=== PATIENT | female | born 1995 | race Caucasian/White ===

== ENCOUNTER 2019-03-20 10:11 | Inpatient (IN) | payer OTHER ==
[~2019-03-20] VITALS: Ht 157.5 cm; Wt 80.3 kg
[2019-03-20 10:15] VITALS: BP 135/80
--- NOTE | 2019-03-20 10:21 | NUR ---
PATIENT AMBULATED TO ER BED 11. RN EVALUATING AT BEDSIDE.
--- NOTE | 2019-03-20 10:31 | NUR ---
c/o sudden onset of ruq with nausea and 2 episodes of emesis x yesterday denies recent injury/trauma--denies dysuria
[2019-03-20 10:51] LABS: APPEARANCE,URINE CLEAR (CLEAR); BILIRUBIN,URINE NEGATIVE (NEGATIVE); BLOOD, URINE NEGATIVE (NEGATIVE); COLOR,URINE YELLOW (YELLOW); LEUKOCYTE ESTERASE ,URINE NEGATIVE (NEGATIVE); NITRITE, URINE NEGATIVE (NEGATIVE); UGLUCOSE NEGATIVE (NEGATIVE)
--- NOTE | 2019-03-20 11:08 | NUR ---
labs drawn at iv start and handed to pt
[2019-03-20 11:10] LABS: BASOPHILS % (AUTO) 0.4 % (0.0-2.0); EOSINOPHILS # (AUTO) 0.2 K/uL (0-0.4); EOSINOPHILS % (AUTO) 3.5 % (0.0-4.0); HEMATOCRIT 41.3 % (36-48); LYMPHOCYTES # (AUTO) 1.9 K/uL (2.5-16.5); LYMPHOCYTES % (AUTO) 28.8 % (20.5-51.1); MEAN CORPUSCULAR HEMOGLOBIN 29 pg (27-31); MEAN CORPUSCULAR HGB CONC 34 g/dL (33-37); MEAN CORPUSCULAR VOLUME 84.3 fL (80-94); MONOCYTES # (AUTO) 0.5 K/uL (0.8-1.0); MONOCYTES % (AUTO) 7.8 % (1.7-9.3); NEUTROPHILS # (AUTO) 3.8 K/uL (1.8-7.7); NEUTROPHILS % (AUTO) 59.5 % (42.2-75.2); PLATELET COUNT (AUTO) 189 K/uL (140-450); RED CELL DISTRIBUTION WIDTH 13.6 % (11.6-13.7); WHITE BLOOD COUNT (AUTO) 6.5 K/uL (4.8-10.8)
[2019-03-20 11:22] LABS: ANION GAP 11.1 (8-16); CREATININE 0.7 mg/dL (0.6-1.3); POTASSIUM 4.1 mmol/L (3.5-5.1)
[2019-03-20 11:28] LABS: ALBUMIN 3.6 g/dL (3.4-5.0); TOTAL BILIRUBIN 0.4 mg/dL (0.0-1.0)
--- NOTE | 2019-03-20 11:41 | NUR ---
pt to radiology via [facility]
--- NOTE | 2019-03-20 12:58 | NUR ---
PT ON HER CELL PHONE---DENIES PAIN THIS TIME CONTINUES TO WAIT FOR DISPO---PENDING ALL RESULTS
--- NOTE | 2019-03-20 13:34 | NUR ---
US exam completed at bedside by tech.
[2019-03-20] MEDS ORDERED: ONDANSETRON 4 MG/2 ML VIAL IVP PRN (17:15)
[2019-03-20] MEDS ORDERED: ACETAMINOPHEN 325 MG TAB PO PRN (17:15)
[2019-03-20] MEDS ORDERED: HYDROcodone/APAP 7.5/325 MG 1 TAB PO PRN (17:15)
[2019-03-20] MEDS ORDERED: PRON INH (17:23)
[2019-03-20] MEDS ORDERED: ALBUTEROL SULFATE/IPRATROPIU 3 ML SOL IH PRN (17:40)
[2019-03-20] MEDS ORDERED: MORPHINE SULFATE 2 MG/ML SYR IVP PRN (17:45)
--- NOTE | 2019-03-20 17:58 | NUR ---
Pt transferred to Med/Surg via WHEELCHAIR REPORT GIVEN TO ASHLEY SHARIF
[2019-03-20 18:00] LABS: PROTHROMBIN TIME 12.1 secs (10.8-13.4)
--- NOTE | 2019-03-20 18:00 | NUR ---
RECEIVED PT FROM ER NURSE VIA DOUG, PT IS AWAKE AND AMBULATED TO THE BED, WITH AN IV LINE ON THE LEFT AC G. 20 ON SALINE LOCK. PT VERBALIZED A PAIN RATE OF 4/10 AND IS TOLERABLE, VITAL SIGNS TAKEN AND BP IS 112/71, PULSE IS 71, O2 SATURATION IS 97%, RESPIRATION IS 16/MIN. NO SIGN OF DISTRESS NOTED AND WILL MONITOR PT.
[2019-03-20 18:01] LABS: BARBITURATE, URINE NEG. ng/ml (NEG <=200); BENZODIAZEPINE, URINE NEG. ng/mL (NEG <=200); CANNABINOID, URINE NEG. ng/mL (NEG <=50); COCAINE, URINE NEG. ng/mL (NEG <=300); OPIATE, URINE NEG. ng/mL (NEG <=2000); PHENCYCLIDINE SCREEN,URINE NEG. ng/mL (NEG <=25)
[2019-03-20 18:13] LABS: FREE T4 (FREE THYROXINE) 1.24 ng/dL (0.76-1.46); MAGNESIUM 1.7 mg/dL (1.8-2.4); PHOSPHORUS 3.6 mg/dL (2.5-4.9); THYROID STIMULATING HORMONE 1.61 uIU/mL (0.34-3.74)
[2019-03-20] MEDS: DEXT 5% / NACL 0.45% 1,000 ML IV SCH (18:38)
--- NOTE | 2019-03-20 18:43 | NUR ---
PT WAS STARTED ON D51/2 NS AT 80ML/HR.
--- NOTE | 2019-03-20 19:15 | NUR ---
ENDORSED PT TO [facility] [employer] OFFICER NURSE FOR CONTINUITY OF CARE, PT IS AWAKE AND STABLE AT THIS TIME, VERBALIZED A PAIN RATE OF 4/10 WITH FAMILY ON THE BEDSIDE.
--- NOTE | 2019-03-20 19:16 | NUR ---
RECEIVED BEDSIDE REPORT FROM ASHLEY SHARIF. PT IS AAOX4. ON ROOM AIR. RESPIRATIONS ARE EQUAL AND UNLABORED. C/C RLQ PAIN. PT STATES PAIN 4/10 TOLERABLE. DX IS POSSIBLE OVARIAN TORISON PT IS NPO EXCEPT MEDS AND HAS A REPEAT US PELVIS IN AM. IV ON LAC D51/2NS INFUSING PER ORDERS. SKIN INTACT. PT IS AMBULATORY. PLAN OF CARE DISCUSSED. CALL LIGHT WITHIN REACH. WILL CONTINUE TO MONITOR.
[2019-03-20] MEDS: DOCUSATE SODIUM 100 MG GELCAP PO SCH (19:53)
--- NOTE | 2019-03-20 21:11 | NUR ---
PT WITH NO S/S OF DISTRESS. RESTING COMFORTABLY IN BED TALKING ON CELL PHONE. HELD COLACE PT WITH BM TODAY.
--- NOTE | 2019-03-20 21:30 | NUR ---
SCD WERE ORDERED AND ARE AT BEDSIDE. PATIENT IS AMBULATORY NOT AT RISK. SCD WERE NOT APPLIED.
--- NOTE | 2019-03-20 21:40 | NUR ---
SPOKE WITH PATIENTS PARENTS. THEY'RE CONCERN FOR THEIR DAUGHTER BECAUSE HER BOYFRIEND JUST BROKE UP WITH HER. PT WANTS TO LEAVE AMA. FATHER STATES HE WILL BRING HER BACK TOMORROW MORNING. EXPLAINED RISK OF HER LEAVING THEY VERBALIZED UNDERSTANDING. PT AGREES TO STAY AND MOTHER WILL SPEND THE NIGHT WITH PATIENT. DR QUINTERO MADE AWARE. WILL CONTINUE TO MONITOR.
[2019-03-20] MEDS ORDERED: MAGNESIUM OXIDE 400 MG TAB PO SCH (22:45)
--- NOTE | 2019-03-20 22:55 | NUR ---
MG 400MG ADMINISTERED PER ORDERS. PT TOLERATED WELL. ALL NEEDS MET AT THIS TIME. PT IS CALM AND MOTHER IS AT BEDSIDE.
[2019-03-21] VITALS: BP 109/72
--- NOTE | 2019-03-21 00:33 | NUR ---
VITAL SIGNS ARE WITHIN NORMAL LIMITS. ALL NEEDS MET AT THIS TIME. WILL CONTINUE TO MONITOR.
--- NOTE | 2019-03-21 02:22 | NUR ---
PATIENT GETTING ULTRASOUND OF PELVIS. NO S/S OF DISTRESS
--- NOTE | 2019-03-21 03:53 | NUR ---
PATIENT IS SLEEPING COMFORTABLY IN BED. NO S/S OF DISTRESS. FATHER AT BEDSIDE. CALL LIGHT WITHIN REACH. WILL CONTINUE TO MONITOR.
[2019-03-21] MEDS: DEXT 5% / NACL 0.45% 1,000 ML IV SCH (05:59)
[2019-03-21] MEDS ORDERED: PANTOPRAZOLE 40 MG TABEC PO SCH (06:30)
--- NOTE | 2019-03-21 07:30 | NUR ---
Report received from night nurse Yusuf Rosas awake a/o appropriate for age and able to communicate needs, family at bedside. Pt denies n/v, pain at this time. Call light and safety precautions in place, maintained NPO per order, IVF infusing well, personal items within reach, will continue to monitor.
--- NOTE | 2019-03-21 07:30 | NUR ---
GAVE BEDSIDE REPORT TO DAY SHIFT RN. PT ENDORSED IN STABLE CONDITION.
[2019-03-21 08:00] VITALS: BP 109/64
[2019-03-21 08:11] LABS: BASOPHILS % (AUTO) 0.4 % (0.0-2.0); EOSINOPHILS # (AUTO) 0.2 K/uL (0-0.4); EOSINOPHILS % (AUTO) 2.8 % (0.0-4.0); HEMATOCRIT 38.4 % (36-48); LYMPHOCYTES # (AUTO) 1.6 K/uL (2.5-16.5); LYMPHOCYTES % (AUTO) 24.4 % (20.5-51.1); MEAN CORPUSCULAR HEMOGLOBIN 29 pg (27-31); MEAN CORPUSCULAR HGB CONC 34 g/dL (33-37); MEAN CORPUSCULAR VOLUME 84.3 fL (80-94); MONOCYTES # (AUTO) 0.6 K/uL (0.8-1.0); NEUTROPHILS % (AUTO) 63.4 % (42.2-75.2); PLATELET COUNT (AUTO) 169 K/uL (140-450); RED BLOOD CELL COUNT(AUTO) 4.56 MIL/uL (4.20-5.40); RED CELL DISTRIBUTION WIDTH 13.7 % (11.6-13.7); WHITE BLOOD COUNT (AUTO) 6.4 K/uL (4.8-10.8)
[2019-03-21 08:25] LABS: CARBON DIOXIDE 31.3 mmol/L (21-32); CREATININE 0.7 mg/dL (0.6-1.3); PHOSPHORUS 3.6 mg/dL (2.5-4.9)
[2019-03-21 08:53] LABS: ALBUMIN 3.4 g/dL (3.4-5.0); MAGNESIUM 1.8 mg/dL (1.8-2.4); TOTAL BILIRUBIN 0.4 mg/dL (0.0-1.0)
[2019-03-21 08:56] LABS: ANION GAP 8.6 (8-16); POTASSIUM 3.9 mmol/L (3.5-5.1)
--- NOTE | 2019-03-21 08:58 | NUR ---
PATIENT HAS BEEN SCREENED AND CATEGORIZED MODERATE NUTRITION RISK. PATIENT WILL BE SEEN WITHIN 3-5 DAYS OF ADMISSION. 03/23/19[address]
[2019-03-21] MEDS: DOCUSATE SODIUM 100 MG GELCAP PO SCH (09:50)
--- NOTE | 2019-03-21 10:00 | NUR ---
Pt resting at this time,appears comfortable family at bedside. Call light and safety precautions in place, maintained NPO per order, IVF infusing well, personal items within reach, will continue to monitor.
[2019-03-21 12:00] VITALS: BP 106/63
--- NOTE | 2019-03-21 12:00 | NUR ---
Pt remains a/o and able to communicate needs with family at bedside. Pt denies n/v, pain at this time. Call light and safety precautions in place, maintained NPO per order, IVF infusing well, personal items within reach, will continue to monitor.
--- NOTE | 2019-03-21 14:00 | NUR ---
Dr Chaparro in house to evaluate pt. Pt remains a/o and able to communicate needs with family at bedside. Pt denies n/v, pain at this time. Call light and safety precautions in place, personal items within reach, will continue to monitor.
[2019-03-21] MEDS ORDERED: NORG1TAB7 PO (14:32)
[2019-03-21 15:29] LABS: CHOL/HDL RATIO 3.7 (1-4.5)
--- NOTE | 2019-03-21 15:55 | NUR ---
PT REMAINS A/O APPROPRIATE, ABLE TO COMMUNICATE NEEDS. PT PERIPHERAL IV DCD TOLERATED WELL, CATH INTACT, DENIES PAIN, VERBALIZED UNDERSTANDING OF DC INSTRUCTIONS. PT DISCHARGED HOME WITH ALL BELONGINGS, ACCOMPANIED BY MOTHER VIA PERSONAL VEHICLE, DENIES PAIN, TOLERATED DIET WELL, DENIES N/V, NO S/S OF ACUTE DISTRESS NOTED, SKIN INTACT AT TIME OF DC.
== END 2019-03-21 15:55 | disposition home or self-care (01) | DRG 761 ==
LOC: MED 10:11 → MTU 17:13
PROVIDERS: ADMIT General Practice; ATTEND General Practice
DX: N83.209 Unspecified ovarian cyst, unspecified side (principal); K29.70 Gastritis, unspecified, without bleeding; E66.9 Obesity, unspecified; J45.909 Unspecified asthma, uncomplicated; K21.9 Gastro-esophageal reflux disease without esophagitis; E83.42 Hypomagnesemia; Z68.32 Body mass index [BMI] 32.0-32.9, adult; Z71.3 Dietary counseling and surveillance; Z79.899 Other long term (current) drug therapy
CPT/HCPCS: 36415; 71045; 76830; 76856; 80053; 80305; 81003; 81025; 82150; 83036; 83605; 83690; 83735; 83880; 84100; 84439; 84443; 84484; 85025; 85610; 85730; 87040; 87081; 99285; Q0092; Q9967

== ENCOUNTER 2019-07-01 10:09 | Emergency (ER) | payer OTHER ==
[~2019-07-01] VITALS: Ht 157.5 cm; Wt 80.7 kg
[~2019-07-01 10:09] MED LIST: NORG1TAB7 PO; PRON INH
[2019-07-01 10:25] VITALS: BP 132/79
--- NOTE | 2019-07-01 10:25 | NUR ---
Pt taken to bed and triaged at bedside.
--- NOTE | 2019-07-01 10:32 | NUR ---
PT C/O MID ABD PAIN THAT STARTED THIS MORNING. SHARP 8/10 PAIN. VOMIT X2 TODAY, NAUSEA. NO DIARRHEA. LAST BM YESTERDAY. PT HAS NOT TAKEN ANY MEDS. LMP 1ST WEEK OF JUNE. PT IS SITTING ON BED SPLINTING ABD.
--- NOTE | 2019-07-01 11:35 | NUR ---
Dr. Wagner evaluating patient at bedside.
[2019-07-01] MEDS ORDERED: ACETAMINOPHEN 325 MG TAB PO ONE (11:45)
[2019-07-01] MEDS ORDERED: ONDANSETRON 4 MG ODT PO ONE (11:45)
[2019-07-01] MEDS ORDERED: DICYCLOMINE HCL LIQUID 20 MG, ALUMINUM HYD/MAG/SIMETHICONE 30 ML, LIDOCAINE VISCOUS 2% ... PO ONE ×3 (11:45)
--- NOTE | 2019-07-01 12:02 | NUR ---
PT RECEIVED MEDS
[2019-07-01 14:35] VITALS: BP 113/61
--- NOTE | 2019-07-01 14:36 | NUR ---
Patient discharged with v/s stable. Written and verbal after care instructions given and explained. Patient alert, oriented and verbalized understanding of instructions. Ambulatory with steady gait. All questions addressed prior to discharge. ID band removed. Patient advised to follow up with PMD. Rx of ZOFRAN ODT 4 MG given. Patient educated on indication of medication including possible reaction and side effects. Opportunity to ask questions provided and answered.
[2019-07-01 16:52] LABS: APPEARANCE,URINE HAZY (CLEAR); BILIRUBIN,URINE NEGATIVE (NEGATIVE); BLOOD, URINE 1+ (NEGATIVE); COLOR,URINE YELLOW (YELLOW); LEUKOCYTE ESTERASE ,URINE NEGATIVE (NEGATIVE); NITRITE, URINE NEGATIVE (NEGATIVE); PH,URINE 8.5 (5.0-9.0); UGLUCOSE NEGATIVE (NEGATIVE)
== END 2019-07-01 14:36 | disposition home or self-care (01) ==
LOC: MED 10:09
DX: K29.70 Gastritis, unspecified, without bleeding (principal); J45.909 Unspecified asthma, uncomplicated; K21.9 Gastro-esophageal reflux disease without esophagitis; Z79.899 Other long term (current) drug therapy
CPT/HCPCS: 81001; 81025; 87086; 99284; Q0162